=== PATIENT | male | born 1960 | race Caucasian/White ===

== ENCOUNTER 2018-03-25 01:03 | Emergency (ER) | payer OTHER ==
[~2018-03-25] VITALS: Ht 180.3 cm; Wt 91.8 kg
[2018-03-25 01:08] VITALS: Ht 180.3 cm; Wt 91.8 kg
[2018-03-25 04:09] LABS: microscopic required? NO
[2018-03-25 04:17] LABS: UA SPECIFIC GRAVITY 1.015 (1.005-1.035); urine erythrocyte NEGATIVE (NEGATIVE)
[2018-03-25 04:24] LABS: BASOPHIL % 0.5 % (0-2); PLATELET COUNT 204 x10^3mcL (130-400); RED CELL DISTRIBUTION WIDTH 13.1 % (11.5-14.5)
[2018-03-25 04:56] LABS: CARBON DIOXIDE 26.6 mmol/L (21-32); CHLORIDE SERUM 107 mmol/L (98-107); GLUCOSE SERUM 92 mg/dL (74-106); POTASSIUM SERUM 3.8 mmol/L (3.5-5.1); SODIUM SERUM 143 mmol/L (136-145)
[2018-03-25 04:57] LABS: ALBUMIN 3.5 g/dL (3.4-5.0); GFR1 > 60 mL/min; TOTAL PROTEIN, SERUM 7.5 g/dL (6.4-8.2)
[2018-03-25 04:58] LABS: ALKALINE PHOSPHATASE 87 U/L (46-116); ALT/SGPT 48 U/L (16-63); AST/SGOT 23 U/L (15-37); BILIRUBIN TOTAL 0.33 mg/dL (0.20-1.00); CALCIUM 8.5 mg/dL (8.5-10.1)
[2018-03-25 06:29] VITALS: BP 141/87
== END 2018-03-25 06:29 | disposition home or self-care (01) ==
LOC: ED 01:03
PROVIDERS: Emergency Medicine
DX: R10.9 Unspecified abdominal pain (principal)
CPT/HCPCS: J2270; J7030